=== PATIENT | female | born 1990 | race Caucasian/White ===

== ENCOUNTER 2017-02-05 16:33 | Emergency (ER) | payer MEDICAID ==
[~2017-02-05] VITALS: Ht 160 cm; Wt 100.5 kg
[~2017-02-05 16:33] MED LIST: IBUP-232 PO
[2017-02-05 16:41] VITALS: BP 154/78; PULSE 80; RESP 18; TEMP 98.5; O2SAT 99
--- NOTE | 2017-02-05 17:28 | PD ---
HPI Chief Complaint: ENT Complaint Time Seen by Provider: 17:00 Travel History International Travel<30 days: No Contact w/Intl Traveler<30days: No Traveled to known affect area: No History of Present Illness HPI 26-year-old female presents to the emergency room for evaluation of sore throat , fever, and bilateral ear pain for the past 5 days. Patient states she was sick with cough and congestion 2 weeks ago but those symptoms resolved after a few days. Her sore throat developed 5 days ago and is severe. Worse with drinking, eating, and when she speaks. Maximum temperature at home was 103.8 last night. She has been taking Motrin and Tylenol for pain and fever. No chronic medical conditions or daily medications. PFSH Past Medical History Blood Disorders: No Anxiety: Yes (SEPARATION ANXIETY) Cancer: No Cardiovascular Problems: No Diminished Hearing: No Gastrointestinal Disorders: Yes Genitourinary: No Immune Disorder: No Musculoskeletal: Yes (CHRONIC BACK PAIN) Neurologic: No Psychiatric: No Reproductive: No Respiratory: No ?: Not LMP: 01/31/17 : 3 Para: 2 Miscarriage: 1 Past Surgical History AICD: No Arteriovenous Shunt: No Insulin Pump: No Joint Replacement: No Pacemaker: No Other Surgery: No Social History Alcohol Use: Yes (socially) Tobacco Use: No Substance Use: No Allergies-Medications (Allergen,Severity, Reaction): Coded Allergies: Amoxicillin (Verified Allergy, Mild, anaphylaxis, 02/05/17) Latex (Verified Allergy, Unknown, 02/05/17) Reported Meds & Prescriptions Reported Meds & Active Scripts Active Reported Multiple Vitamin 1 Tab 1 Tab PO DAILY Review of Systems Except as stated in HPI: all other systems reviewed are Neg Physical Exam Narrative GENERAL: Well-nourished, well-developed female in no acute distress. Afebrile. Ambulatory. SKIN: Focused skin assessment warm/dry. HEAD: Normocephalic. EYES: No scleral icterus. No injection or drainage. NECK: Supple, trachea midline. No JVD or lymphadenopathy. THROAT: Extreme pharyngeal injection with scant bilateral exudates. No significant tonsillar hypertrophy. Airway is patent. EARS: Bilateral pinnae and external canals appear within normal limits. Bilateral tympanic membranes without erythema, dullness or perforation. CARDIOVASCULAR: Regular rate and rhythm without murmurs, gallops, or rubs. RESPIRATORY: Breath sounds equal bilaterally. No accessory muscle use. No crackles, rales, wheezes, rhonchi. Data Data Last Documented VS Vital Signs Date Time Temp Pulse Resp B/P Pulse Ox O2 Delivery O2 Flow Rate FiO2 02/05/17 16:41 98.5 80 18 154/78 99 Orders Group A Rapid Strep Screen (02/05/17 17:09) MDM Medical Decision Making Medical Screen Exam Complete: Yes Emergency Medical Condition: Yes Medical Record Reviewed: Yes Differential Diagnosis Streptococcal pharyngitis, upper respiratory infection, bronchitis Narrative Course 26-year-old female presents to the emergency room for evaluation of sore throat , fever, and bilateral ear pain for the past 5 days. Maximum temperature is 103.8 degrees last night. Patient is afebrile and well-appearing in the emergency room. Vital signs stable. Physical exam reveals extreme erythema of the pharynx and tonsils. Skin exudates and mild edema. Bilateral tympanic membranes show no evidence of bacterial infection. Lung sounds clear and equal bilaterally. Rapid strep is positive. Patient discharged with prescription for Magic mouthwash and azithromycin and told to follow up with a primary care physician or return for worsening symptoms. She understands and agrees to plan. Diagnosis Primary Impression: Streptococcal pharyngitis Referrals: Primary Care Physician Patient Instructions: General Instructions, Strep Throat (ED) Med/Other Pt SpecificInfo: Prescription(s) given Scripts Mkctnoltmugcvah-Bzzpjmkqx-Yuz-Alum-Simeth Liq (Magic Mouthwash Pediatric/Adult Liq)60 Ml Susp5 Ml SWISH-SWAL ACHS #60 ML Ref 0 Each 5mL contains: Diphenydramine 4.5mg, Viscous Lidocaine 2% 10mg, Maalox Advanced Regular Strength 2.7ml Prov:Krzysztof Beltrán MD 02/05/17 Azithromycin 250 Mg [id number] Mg PO DIRECTED #6 TAB Ref 0 Take 2 tabs (500 mg) on day 1 then 1 tab daily x 4 days. Prov:Krzysztof Beltrán MD 02/05/17 Disposition: 01 DISCHARGE HOME Condition: Stable Daxa Moreno Feb 05, 2017 17:28
[2017-02-05] MEDS ORDERED: MULTTAB67 PO (17:38)
[2017-02-05] MEDS ORDERED: MAGICPED SWISH-SWAL (17:49)
[2017-02-05] MEDS ORDERED: AZIT250T3 PO (17:49)
== END 2017-02-05 18:06 | disposition home or self-care (01) ==
LOC: PHED 16:33
DX: J02.0 Streptococcal pharyngitis (principal); B95.1 Streptococcus, group B, as the cause of diseases classified elsewhere
CPT/HCPCS: 87880; 99284

== ENCOUNTER 2017-05-30 20:19 | Emergency (ER) | payer MEDICAID ==
[~2017-05-30] VITALS: Ht 160 cm; Wt 103.0 kg
[~2017-05-30 20:19] MED LIST changes: +AZIT250T3 PO; -IBUP-232 PO; +MAGICPED SWISH-SWAL; +MULTTAB67 PO
[2017-05-30 20:27] VITALS: BP 156/97; PULSE 86; RESP 16; TEMP 98.5; O2SAT 100
[2017-05-30 20:34] VITALS: BP 167/83; PULSE 64; RESP 20; O2SAT 98
[2017-05-30] MEDS ORDERED: LORazepam 2 MG/ML VIAL IV PUSH ONE (20:45)
--- NOTE | 2017-05-30 20:55 | PD ---
HPI Chief Complaint: Anxiety Time Seen by Provider: 20:34 Travel History International Travel<30 days: No Contact w/Intl Traveler<30days: No Traveled to known affect area: No History of Present Illness HPI Patient is a 26-year-old female with history of depression, anxiety, presents to emergency room with complaints of epigastric pain. Patient reports that intermittently, after she eats, she would begin to have pain to her epigastrium. Patient reports the pain last for a few minutes to hours and then resolves on its own. Patient reports that she currently has no pain at this time. Patient reports that she is anxious as she is afraid that there is something wrong with her heart. Reports that she is under a lot of stress. Reports that she was recently started on antidepressants by her pcp a week ago. Reports that she is anxious and can't stop crying. Patient reports that she has been having a lot of issues with her daughter and her health, reports that her father a few days ago (not from a cardiac condition). Patient reports that she just wanted to make sure that she was okay and wanted to get a checkup. Patient presents to emergency room with her mother was at bedside, reports that patient has a very and very stressed with family events recently. No family history of early coronary disease or cardiac . Patient currently with no chest pain or shortness of breath at this time, denies any palpitations, denies any recent travels or trips. PFSH Past Medical History Blood Disorders: No Anxiety: Yes (SEPARATION ANXIETY) Cancer: No Cardiovascular Problems: No Diminished Hearing: No Gastrointestinal Disorders: Yes Genitourinary: No Immune Disorder: No Musculoskeletal: Yes (CHRONIC BACK PAIN) Neurologic: No Psychiatric: No Reproductive: No Respiratory: No ?: Not LMP: 05/30 : 3 Para: 2 Miscarriage: 1 Past Surgical History AICD: No Arteriovenous Shunt: No Insulin Pump: No Joint Replacement: No Pacemaker: No Other Surgery: No Social History Alcohol Use: No Tobacco Use: No Substance Use: No Allergies-Medications (Allergen,Severity, Reaction): Coded Allergies: amoxicillin (Verified Allergy, Mild, anaphylaxis, 05/30/17) latex (Verified Allergy, Unknown, 05/30/17) Reported Meds & Prescriptions Reported Meds & Active Scripts Active Reported Buspirone (Buspirone HCl) 5 Mg Tab 5 Mg PO BID Zoloft (Sertraline HCl) 50 Mg Tab 50 Mg PO HS Review of Systems General / Constitutional: No: Fever Eyes: No: Visual changes HENT: No: Headaches Cardiovascular: Positive: Chest Pain or Discomfort, No: Palpitations, Irregular Rhythm, Tachycardia Respiratory: No: Cough, Shortness of Breath Gastrointestinal: Positive: Other (intermittent epigastric pain), No: Abdominal Pain Genitourinary: No: Dysuria Musculoskeletal: No: Pain Skin: No Rash Neurologic: No: Weakness, Headache Psychiatric: Positive: Anxiety, Depression, No: Suicidal Ideations, Homicidal Ideation Endocrine: No: Polydipsia Hematologic/Lymphatic: No: Easy Bruising Physical Exam Narrative GENERAL: patient tearful on exam SKIN: Focused skin assessment warm/dry. HEAD: Atraumatic. Normocephalic. EYES: Pupils equal and round. No scleral icterus. No injection or drainage. ENT: No nasal bleeding or discharge. Mucous membranes pink and moist. NECK: Trachea midline. No JVD. CARDIOVASCULAR: Regular rate and rhythm. No murmur appreciated. RESPIRATORY: No accessory muscle use. Clear to auscultation. Breath sounds equal bilaterally. GASTROINTESTINAL: Abdomen soft, non-tender, nondistended. Hepatic and splenic margins not palpable. MUSCULOSKELETAL: No obvious deformities. No clubbing. No cyanosis. No edema. NEUROLOGICAL: Awake and alert. No obvious cranial nerve deficits. Motor grossly within normal limits. Normal speech. PSYCHIATRIC: anxious mood and affect; insight and judgment normal. Data Data Last Documented VS Vital Signs Date Time Temp Pulse Resp B/P (MAP) Pulse Ox O2 Delivery O2 Flow Rate FiO2 05/30/17 21:13 69 20 157/84 (108) 99 05/30/17 20:27 98.5 Orders Orders Electrocardiogram (05/30/17 ) Ed Urine Pregnancytest Poc (05/30/17 20:34) Drug Screen, Random Urine (05/30/17 20:34) Complete Blood Count With Diff (05/30/17 20:41) Comprehensive Metabolic Panel (05/30/17 20:41) Lipase (05/30/17 20:41) Chest, Single Ap (05/30/17 20:41) Ecg Monitoring (05/30/17 20:41) Iv Access Insert/Monitor (05/30/17 20:41) Oximetry (05/30/17 20:41) Lorazepam Inj (Ativan Inj) (05/30/17 20:45) Labs Laboratory Tests Test 05/30/17 20:50 05/30/17 21:10 Urine Opiates Screen NEG Urine Barbiturates Screen NEG Urine Amphetamines Screen NEG Urine Benzodiazepines Screen NEG Urine Cocaine Screen NEG Urine Cannabinoids Screen NEG White Blood Count 7.4 TH/MM3 Red Blood Count 4.68 MIL/MM3 Hemoglobin 12.7 GM/DL Hematocrit 39.9 % Mean Corpuscular Volume 85.3 FL Mean Corpuscular Hemoglobin 27.2 PG Mean Corpuscular Hemoglobin Concent 31.9 % Red Cell Distribution Width 13.4 % Platelet Count 246 TH/MM3 Mean Platelet Volume 9.2 FL Neutrophils (%) (Auto) 69.8 % Lymphocytes (%) (Auto) 25.3 % Monocytes (%) (Auto) 3.5 % Eosinophils (%) (Auto) 0.8 % Basophils (%) (Auto) 0.6 % Neutrophils # (Auto) 5.1 TH/MM3 Lymphocytes # (Auto) 1.9 TH/MM3 Monocytes # (Auto) 0.3 TH/MM3 Eosinophils # (Auto) 0.1 TH/MM3 Basophils # (Auto) 0.0 TH/MM3 CBC Comment DIFF FINAL Differential Comment Blood Urea Nitrogen 8 MG/DL Creatinine 0.64 MG/DL Random Glucose 100 MG/DL Total Protein 7.4 GM/DL Albumin 3.9 GM/DL Calcium Level 9.0 MG/DL Alkaline Phosphatase 49 U/L Aspartate Amino Transf (AST/SGOT) 9 U/L Alanine Aminotransferase (ALT/SGPT) 22 U/L Total Bilirubin 0.2 MG/DL Sodium Level 139 MEQ/L Potassium Level 3.7 MEQ/L Chloride Level 104 MEQ/L Carbon Dioxide Level 26.3 MEQ/L Anion Gap 9 MEQ/L Estimat Glomerular Filtration Rate 110 ML/MIN Lipase 154 U/L [facility] Medical Decision Making Medical Screen Exam Complete: Yes Emergency Medical Condition: Yes Medical Record Reviewed: Yes Interpretation(s) EKG at 2043: NSR at 81bpm, qt/qtc: 360/398, no acute st or t wave changes Vital Signs Date Time Temp Pulse Resp B/P (MAP) Pulse Ox O2 Delivery O2 Flow Rate FiO2 05/30/17 20:27 98.5 86 16 156/97 (116) 100 Differential Diagnosis anxiety reaction, gerd, gastritis, esophagitis, pericarditis, ACS though unlikely Narrative Course Patient is a nontoxic 26-year-old female who presents to emergency room with complaints of intermittent epigastric pain which after eating. Patient unsure which foods exacerbate her symptoms, reports that she currently does not have any epigastric pain at this time. Patient reports she is concerned for possible "heart issues." Patient with no history of hypertension or hyperlipidemia, patient with no history of coronary artery disease. Patient denies any drug abuse, denies smoking history. No family history of early coronary disease or AL. Patient is extremely anxious this time, her mother as well as children are at bedside. EKG was obtained which showed no acute ST-T wave changes. I did discuss with patient that her epigastric pain could be likely to esophagitis, gastritis - discussed with her that she should avoid certain foods which would exacerbate her symptoms red sauces, spicy foods, and coffee, etc. Patient will watch her food intake. During the course of the patients emergency department visit, the patients history, examination, and differential diagnosis were reviewed with the patient. The patient was placed on a business development engineer with oximetry and frequent blood pressure monitoring. The patient had a 20-gauge IV access obtained and blood work sent for analysis. The patient was initially provided IV Ativan for treatment of anxiety. The patients laboratory studies were reviewed and remarkable for: CBC & BMP Diagram 05/30/17 21:10 Total Protein 7.4, Albumin 3.9, Calcium Level 9.0, Alkaline Phosphatase 49, Aspartate Amino Transf (AST/SGOT) 9 L, Alanine Aminotransferase (ALT/SGPT) 22, Total Bilirubin 0.2 Radiology studies were reviewed and remarkable for: Last Impressions Chest X-Ray 05/30/172040 Signed Impressions: Service Date/Time: Tuesday, May 30, 2017 21:10 - CONCLUSION: No acute disease. Jean Pierre Shaw MD Patient reevaluated, patient feeling much better at this time. Reviewed all labs and all studies with patient in detail, patient with most likely anxiety reaction. Will follow-up with her primary care doctor and will return to the emergency room as needed Diagnosis Primary Impression: Anxiety Additional Impression: Chest pain Patient Instructions: General Instructions Additional Instructions: Please follow-up with your primary care doctor, return to the emergency room as needed. Disposition: 01 DISCHARGE HOME Condition: Stable Cherise Huang DO May 30, 2017 20:55
[2017-05-30 21:13] VITALS: BP 157/84; PULSE 69; RESP 20; O2SAT 99
[2017-05-30] MEDS ORDERED: ZOLO50TA PO (21:21)
[2017-05-30] MEDS ORDERED: BUSP5TAB PO (21:21)
[2017-05-30 21:23] VITALS: BP 126/78; PULSE 61; RESP 20; O2SAT 99
--- NOTE | 2017-05-30 21:33 | RADRPT ---
EXAM DATE/TIME: 05/30/2017 21:10 [facility] COMPARISON: No previous studies available for comparison. INDICATIONS : Mid chest pressure since this morning. MEDICAL HISTORY : None. SURGICAL HISTORY : None. ENCOUNTER: Initial ACUITY: 1 day PAIN SCORE: 4/10 LOCATION: Bilateral chest FINDINGS: A single view of the chest demonstrates the lungs to be symmetrically aerated without evidence of mas s, infiltrate or effusion. The cardiomediastinal contours are unremarkable. Osseous structures are intact. CONCLUSION: No acute disease. Jean Pierre Shaw MD on May 30, 2017 at 21:31 Board Certified Radiologist. This report was verified electronically.
[2017-05-30 21:38] LABS: AUTOMATED NEUTROPHIL # 5.1 TH/MM3 (1.8-7.7); BASOPHIL % 0.6 % (0.0-2.0); EOSINOPHIL # 0.1 TH/MM3 (0-0.4); EOSINOPHIL % 0.8 % (0.0-4.0); HEMATOCRIT 39.9 % (35.0-46.0); HEMO FLAGS DIFF FINAL; LYMPH % 25.3 % (9.0-44.0); LYMPHOCYTE # 1.9 TH/MM3 (1.0-4.8); MEAN CELL VOLUME 85.3 FL (80.0-100.0); MEAN CORPUSCULAR HEMOGLOBIN 27.2 PG (27.0-34.0); MEAN CORPUSCULAR HGB CONC 31.9 % (32.0-36.0); MONO % 3.5 % (0.0-8.0); NEUT % 69.8 % (16.0-70.0); PLATELET COUNT 246 TH/MM3 (150-450); RED BLOOD COUNT 4.68 MIL/MM3 (4.00-5.30); RED CELL DISTRIBUTION WIDTH 13.4 % (11.6-17.2); WHITE BLOOD COUNT 7.4 TH/MM3 (4.0-11.0)
[2017-05-30 22:21] LABS: CHLORIDE 104 MEQ/L (98-107); POTASSIUM 3.7 MEQ/L (3.5-5.1); SODIUM (NA) 139 MEQ/L (136-145)
[2017-05-30 22:25] LABS: ANION GAP 9 MEQ/L (5-15); BICARBONATE 26.3 MEQ/L (21.0-32.0)
[2017-05-30 22:26] LABS: BLOOD UREA NITROGEN 8 MG/DL (7-18)
[2017-05-30 22:28] LABS: ALT (GPT) 22 U/L (10-53); AST (GOT) 9 U/L (15-37); GLOMERULAR FILTRATION RATE 110 ML/MIN (>89)
[2017-05-30 22:30] LABS: TOTAL BILIRUBIN ADULT 0.2 MG/DL (0.2-1.0)
[2017-05-30 22:31] LABS: ALKALINE PHOSPHATASE 49 U/L (45-117)
[2017-05-30 23:26] VITALS: BP 144/78; PULSE 81; RESP 20; O2SAT 99
[2017-05-30 23:27] VITALS: BP 147/76
--- NOTE | 2017-05-31 05:00 | EKG ---
Date Performed: 05/30/2017 Time Performed: 20:44:12 PTAGE: 26 years EKG: Sinus rhythm WITH SINUS ARRHYTHMIA NORMAL ECG No significant change from prior electrocardiogram. PREVIOUS TRACING : 01/09/2014 23.47 DOCTOR: Madhu Castillo Interpretating Date/Time 05/31/2017 04:59:04
== END 2017-05-30 23:30 | disposition home or self-care (01) ==
LOC: PHED 20:19
DX: F41.9 Anxiety disorder, unspecified (principal); R07.9 Chest pain, unspecified; Z88.0 Allergy status to penicillin; Z79.899 Other long term (current) drug therapy
CPT/HCPCS: 71010; 80053; 80307; 83690; 84703; 85025; 93005; 96374; 99285; J2060